=== PATIENT | male | born 1990 | race Caucasian/White ===

== ENCOUNTER 2023-11-02 22:44 | Emergency (ER) | payer MEDICAID ==
[~2023-11-02] VITALS: Ht 185.4 cm; Wt 84.0 kg
[2023-11-02 22:45] VITALS: BP 143/101; PULSE 73; RESP 18; O2SAT 98
[2023-11-02] MEDS ORDERED: ACETAMINOPHEN 325MG TABLET PO STA (23:07)
[2023-11-02] MEDS ORDERED: ONDANSETRON HCL 4MG/2ML INJ IM NR (23:11)
[2023-11-02] MEDS ORDERED: MORPHINE SULFATE 4 MG/ML INJ (FOR IV/IM USE) IM NR (23:14)
[2023-11-03] MEDS ORDERED: AMOX1TAB16 MT (06:13)
[2023-11-03] MEDS ORDERED: IBUP-2029 MT (06:13)
== END 2023-11-02 23:54 | disposition left against medical advice (07) ==
LOC: ER 22:44
DX: S02.40EA Zygomatic fracture, right side, initial encounter for closed fracture (principal); Y08.89XA Assault by other specified means, initial encounter; Y93.89 Activity, other specified; Y92.89 Other specified places as the place of occurrence of the external cause; Y99.8 Other external cause status
CPT/HCPCS: 70486; 99284

== ENCOUNTER 2023-11-03 00:24 | Emergency (ER) | payer MEDICAID ==
[~2023-11-03] VITALS: Ht 180.3 cm; Wt 80.0 kg
[2023-11-03 01:32] VITALS: BP 137/68; PULSE 97; RESP 18; TEMP 98.4; O2SAT 99
[2023-11-03] MEDS ORDERED: AMOX1TAB16 MT (06:13)
[2023-11-03] MEDS ORDERED: IBUP-2029 MT (06:13)
== END 2023-11-03 02:07 | disposition left against medical advice (07) ==
LOC: ER 00:24
DX: R51.9 Headache, unspecified (principal); Z53.21 Procedure and treatment not carried out due to patient leaving prior to being seen by health care provider

== ENCOUNTER 2023-11-03 02:21 | Emergency (ER) | payer MEDICAID ==
[~2023-11-03] VITALS: Ht 180.3 cm; Wt 80.0 kg
[2023-11-03 02:59] VITALS: BP 142/71; PULSE 98; RESP 18; TEMP 98.7; O2SAT 99
[2023-11-03] MEDS: BACITRACIN ZINC OINT UDPKT TOP ONE (04:15)
[2023-11-03] MEDS ORDERED: TETANUS, DIPHTHERIA, PERTUSSIS VAC/PF 0.5ML (>10YR OLD) IM ONE (04:15)
[2023-11-03] MEDS: KETOROLAC 30MG/ML VIAL IM ONE (04:15)
[2023-11-03] MEDS ORDERED: KETOROLAC 30MG/ML VIAL IM NR (05:30)
[2023-11-03] MEDS ORDERED: BACITRACIN ZINC OINT UDPKT TOP NR (05:30)
[2023-11-03] MEDS: TETANUS, DIPHTHERIA, PERTUSSIS VAC/PF 0.5ML (>10YR OLD) IM ONE (05:58)
[2023-11-03] MEDS ORDERED: IBUP-2029 MT (06:13)
[2023-11-03] MEDS ORDERED: AMOX1TAB16 MT (06:13)
== END 2023-11-03 12:49 | disposition home or self-care (01) ==
LOC: ER 02:21
DX: S02.92XA Unspecified fracture of facial bones, initial encounter for closed fracture (principal); Y04.0XXA Assault by unarmed brawl or fight, initial encounter; Y93.89 Activity, other specified; Y92.89 Other specified places as the place of occurrence of the external cause; Y99.8 Other external cause status
CPT/HCPCS: 99283; 90715; 90471; J1885